=== PATIENT | female | born 1955 | race Caucasian/White ===

== ENCOUNTER → 2016-12-16 | Day surgery (SDC) | payer OTHER ==
[~2016-12-16] VITALS: Ht 167.6 cm; Wt 79.4 kg
[~2016-12-16] MED LIST: LABETALOL HYDR100 MG PO; SIMVASTATIN20 M2 PO; TOPROL XL50 M1 PO
--- NOTE | 2016-12-16 13:50 | Operative Report ---
Operative/Inv Procedure Report Surgery Date: 12/16/16 Name of Procedure: TURBT (large 5cm): with Gabe. in RR Pre-Operative Diagnosis: bladder tumor Post-Operative Diagnosis: same Estimated Blood Loss: 50ml to 100ml Surgeon/Container Finisher: RICH ALEGRE MD Anesthesia: laryngeal mask airway Drains: 18fr-used in RR for mitomycin 40mg bladder instillation. Specimens: bladder tumor Complications: none Operative/Procedure Note Note: The patient was taken to the operating room, and placed on the OR table in supine position. Timeout was performed, with the patient awake, to confirm correct patient, procedure, anesthesia, antibiotics, and other pertinent teja- operative information. After adequate anesthesia and antibiotics, the patient was then placed in lithotomy stirrups, draped and prepped in usual surgical fashion. A 26 Ethiopian resectoscope sheath with a 30 angle lens, and 24 Ethiopian loop, was inserted into the urethra, and advanced into the bladder without difficulty. Upon entering the bladder, the bladder was noted to be mildly trabeculated. Both ureteral orifices were in their orthotopic position, with clear reflux bilaterally. A solitary 5 Cm papillary lesion was visualized on the right lateral wall of the bladder (close to UO), consistent with tumor. No other tumors were seen on thorough and systematic surveillance. Under direct visualization, this 5 cm papillary lesion was resected from superficial to deeper layers, including partial detrusor muscle base resection. The entire tumor was removed, along with a 0.5 cm margin of normal mucosa. The tumor fragments were evacuated, and sent to pathology. Cauterization of the base of the tumor resection was performed, in order to achieve good hemostasis. The bladder was copiously irrigated once again with 3 L of sorbitol. The resectoscope was removed leaving the bladder full. The bladder was drained by placing a 16 Ethiopian Plasencia catheter, without difficulty, and with clear fluid. 10 mL of sterile water was placed in the balloon, and the Plasencia catheter was plugged after complete decompression of the bladder. The patient tolerated procedure well was then taken to recovery room in satisfactory condition. In the recovery room, Mitomycin 40mg in 40cc sterile saline, was instilled into the bladder using the indwelling 16fr catheter. The Plasencia was clamped, for one hour, with the pt turned from [id number] every 15minutes, during mitomycin instillation. The patient tolerated this part of the procedures well, the catheter was removed for the pt. to void. The patient tolerated both procedures well and discharged withpain meds, and antibiotics. The patient is scheduled for follow-up in the office in 2 weeks time. Findings: 5cm bladder tumor very close to right UO. Discharge Disposition: PACU CC: RICH ALEGRE MD
== END ==
LOC: STS 01:23
DX: C67.2 Malignant neoplasm of lateral wall of bladder (principal); I10 Essential (primary) hypertension; Z87.442 Personal history of urinary calculi; F17.200 Nicotine dependence, unspecified, uncomplicated
CPT/HCPCS: 88305; 88307; J2250; J9280